=== PATIENT | female | born 1955 | race Caucasian/White ===

== ENCOUNTER 2017-09-08 05:49 | Inpatient (IN) | payer BC ==
[2017-08-24 14:24] VITALS: BMI 40.2
--- NOTE | 2017-09-07 09:09 | HP ---
Satellite [facility] - Chief Complaint Chief Complaint: left knee pain - Past Medical History Allergies/Adverse Reactions: Allergies Allergy/AdvReac Type Severity Reaction Status Date / Time erythromycin base AdvReac Severe Vomiting Verified 08/24/17 14:13 - Current Medications Current Medications: Home Medications Medication Instructions Recorded Fexofenadine HCl 180 mg PO DAILY 03/04/16 Irbesartan/Hydrochlorothiazide 1 tab PO HS 03/04/16 [Avalide 300-12.5 mg Tablet] Metoprolol Succinate [Toprol XL -] 25 mg PO HS 03/04/16 Ferrous Sulfate [Feosol] 325 mg PO DAILY 08/24/17 Naproxen/Esomeprazole Mag [Vimovo 1 each PO ASDIR PRN 08/24/17 Dr 500-20 mg Tablet] Satellite Physical Exam - Physical Examination General Appearance: Well Nourished, Well Developed, Alert & Oriented x3 ENT: Clear Lung: Normal air movement Heart: Regular rate & rhythm Extremities: Other (left knee- + swelling, + ttp ,decr rom, nvi xrays show grade 4 tricompartmental djd) Neurological: Intact, Alert, Oriented Satellite Impression/Plan - Impression/Plan Impression: left knee djd Operative Procedure: left ministerio tkr Date to be Performed: 09/08/17
[2017-09-08] MEDS ORDERED: CELECOXIB 200 MG CAPSULE PO ONE (06:13)
[2017-09-08] MEDS ORDERED: GABAPENTIN 300 MG CAPSULE (FP) PO ONE (06:13)
[2017-09-08] MEDS ORDERED: TRANEXAMIC ACID 1000 MG/10 ML VIAL IVPUSH ONE (06:13)
[2017-09-08] MEDS ORDERED: oxyCODONE HCL 10 MG SUSTAINED ACTING TABLET PO ONE (06:13)
[2017-09-08] MEDS ORDERED: CEFAZOLIN 2 GM/D5W 2 GM/50 ML ML IVPB ONE (06:13)
[2017-09-08] MEDS ORDERED: DEXAMETHASONE SOD PHOSPHATE/PF 10 MG/ML SDV ONE (06:56)
[2017-09-08] MEDS ORDERED: BUPIVACAINE LIPOSOME/PF (EXPAREL) 266 MG/20 ML VIAL ONE (06:56)
[2017-09-08] MEDS ORDERED: ROPIVACAINE HCL 0.5% 30ML VIAL ONE (06:57)
[2017-09-08] MEDS ORDERED: MIDAZOLAM HCL 2 MG/2 ML SINGLE DOSE VIAL ONE ×2 (06:57→09:02)
[2017-09-08] MEDS ORDERED: ONDANSETRON 4 MG/2 ML VIAL ONE (07:04)
[2017-09-08] MEDS ORDERED: PROPOFOL 20 ML ONE ×2 (07:04→09:25)
[2017-09-08] MEDS ORDERED: DEXAMETHASONE SOD PHOSPHATE 4 MG/1 ML VIAL ONE (07:04)
[2017-09-08] MEDS ORDERED: SUCCINYLCHOLINE CHLORIDE 200 MG/10 ML VIAL ONE (07:07)
[2017-09-08] MEDS ORDERED: ceFAZolin SODIUM 1 GM VIAL ONE ×2 (07:24→08:23)
[2017-09-08] MEDS ORDERED: VANCOMYCIN 1,000 MG VIAL (RESTRICTED TO ID ONLY) ONE (07:24)
[2017-09-08] MEDS ORDERED: TRANEXAMIC ACID 1000 MG/10 ML VIAL ONE (08:23)
[2017-09-08] MEDS ORDERED: MAGNESIUM HYDROX 2400MG/30ML ORAL SUSPENSION 30 ML CUP PO PRN (10:10)
[2017-09-08] MEDS ORDERED: ONDANSETRON 4 MG/2 ML VIAL IVPUSH PRN (10:10)
[2017-09-08] MEDS ORDERED: MAG HYDROX/AL HYDROX/SIMETH 30 ML UNIT-DOSE CUP PO PRN (10:10)
[2017-09-08] MEDS ORDERED: ACETAMINOPHEN 1000 MG/100 ML VIAL (NON FORMULARY) IVPB ONE (10:12)
--- NOTE | 2017-09-08 10:13 | OP ---
Operative Note - Note: Operative Date: 09/08/17 (faby) Pre-Operative Diagnosis: left knee djd Operation: left ministerio tkr Post-Operative Diagnosis: Same as Pre-op Surgeon: Gabe Westbrook Manager Forensic: Eros Simeon Anesthesiologist/BOBBIN HANDLER: Ivet Lockett Anesthesia: Spinal, Local Specimens Removed: bone fragments Estimated Blood Loss (mls): 100 Operative Report Dictated: Yes
[2017-09-08] MEDS ORDERED: LACTATED RINGERS SOLUTION 1,000 ML IV SCH (10:15)
[2017-09-08] MEDS: oxyCODONE HCL 5 MG TABLET PO PRN ×2 (15:35→18:13)
[2017-09-08] MEDS: CEFAZOLIN 2 GM/D5W 2 GM/50 ML ML IVPB SCH (15:37)
--- NOTE | 2017-09-08 15:46 | OP ---
DATE OF OPERATION: 09/08/2017 PREOPERATIVE DIAGNOSIS: Degenerative joint disease, left knee. POSTOPERATIVE DIAGNOSIS: Degenerative joint disease, left knee. PROCEDURE: Left total knee replacement with robotic-assisted navigation (MAKOplasty). SURGICAL ATTENDING: Gabe Westbrook MD FAITH DOCTOR: FLORENTINO Ferguson ANESTHESIA: Regional and spinal. CLOSURE: Triathlon knee system, cemented with a 1 femur, a 2 tibia, a 9 polyethylene, a 29 patella; No. 1 Vicryl fascia, 0 and 2-0 subcutaneous, and 3-0 Monocryl subcuticular with skin glue for skin, 4-0 undyed Vicryl for pin sites. ESTIMATED BLOOD LOSS: Approximately 100 mL. COMPLICATIONS: None. CONDITION: To Recovery in stable condition. DESCRIPTION OF OPERATIVE PROCEDURE: Patient was taken to the operating room on September 08, 2017. Spinal and regional anesthesia was administered by the anesthesiologist. IV Kefzol was administered prophylactically prior to the case as was TXA. A well-padded pneumatic tourniquet was placed on the left proximal thigh. Left lower extremity was prepped and draped in the usual sterile fashion. A 12-cm longitudinal midline incision was incised in the knee. Hemostasis achieved with Bovie cautery. Sharp dissection was carried down to the level of the extensor mechanism with sufficient flaps mediolaterally to perform the procedure. A medial parapatellar arthrotomy was then performed and inverting the patella and flexing the knee. Subperiosteal dissection was done on the anterior medial proximal tibia until the knee was able to be brought forward. This was facilitated by taking the menisci and the cruciate ligaments. Checkpoints were malleted on the femur and the tibia. Two pins were drilled in parallel fashion anterior, posterior, proximal to the articular surface in the distal femur, through the anterior cortex, and engaging but not through the posterior cortex. Through 2 small stab incisions, 2 pins were also drilled 1 handbreadth below the tibial tubercle, through the anterior cortex of the tibia, and engaging but not through the posterior cortex. Both these sets of pins were attached to navigation arrays. The knee was then registered with the navigation device with center of rotation of the hip, medial and lateral malleoli, and multiple points on both the femur and the tibia. Confirmation of excellent registration was confirmed by "popping the bubbles." Osteophytes circumferentially were then debrided. The knee was then tensioned in flexion and extension and varus and valgus stress to measure gaps. The virtual position of the components on the navigation device were manipulated to ensure equal gaps in full extension and 90 degrees of flexion in both varus and valgus. The robot was then brought in the field. The distal femur and proximal tibia were then cut to the specifications directed earlier. After the cuts were made, a dog bones were used to confirm equal tension both in varus/valgus in full extension and 90 degrees of flexion. The box was then made using the number 1 sizer for the femur. Trial components were then applied on the femur and on the tibia with a 9-mm insert. That had good stability from full extension to full flexion. The patella was calipered for thickness and then onto the appropriate level. A 29 lollipop was used to drill the lug holes in the patella. Trial component was applied. The knee was taken through a range of motion, found to have excellent tracking of the patella from full extension to full flexion with good stability throughout. The trial components were then removed. The keel was then made in the tibia. The pins and checkpoints were removed. The knee was exsanguinated with an Esmarch bandage. Tourniquet was inflated to 275 mmHg. The knee was thoroughly cleaned. The real components were then cemented in using modern instrumentation cement techniques with antibiotic cement and pressurization. After the cement was hardened, the knee was thoroughly inspected to remove all excess cement. The real number 9 polyethylene was then clipped into place and again found to have excellent range of motion with excellent tracking of the patella and excellent stability throughout. There was a slight avulsion of the medial portion of the patella tendon. In order to fixate that, a corkscrew anchor with FiberWire suture was used, and that was repaired to ensure that it did not propagate. The medial parapatellar arthrotomy was then closed using No. 1 Vicryl interrupted suture. Vancomycin powder was placed in the knee joint prior to closure. The subcutaneous was pulse-antibiotic irrigated and then closed using 0 and 2-0 Vicryl, 3-0 Monocryl subcuticular with skin glue for skin, 4-0 undyed Vicryl for pin sites. A sterile Aquacel dressing, followed by a Sims dressing was applied. Tourniquet was deflated. Total tourniquet time was approximately 25 minutes. No complications. Su [id number]
[2017-09-08] MEDS: ACETAMINOPHEN 325 MG TABLET (FP) PO SCH (18:12)
[2017-09-08] MEDS: metoPROLOL SUCCINATE 25 MG TAB.SR.24H (FP) PO SCH (21:58)
[2017-09-08] MEDS: LOSARTAN POTASSIUM 50 MG TABLET (FP) PO SCH (21:58)
[2017-09-08] MEDS: SENNOSIDES/DOCUSATE COMBO (SENNA PLUS) TABLET (UD) PO SCH (21:58)
[2017-09-08] MEDS: HYDROCHLOROTHIAZIDE 12.5 MG CAPSULE (FP) PO SCH (21:59)
[2017-09-08] MEDS: oxyCODONE HCL 10 MG SUSTAINED ACTING TABLET PO SCH (21:59)
[2017-09-08] MEDS: GABAPENTIN 300 MG CAPSULE (FP) PO SCH (21:59)
[2017-09-08] MEDS ORDERED: PATIENT'S OWN MEDICATION (NON-FORMULARY) (Irbesartan/Hydrochlorothiazide [Avalide 300-12.5 PO SCH (22:00)
[2017-09-09] MEDS: ACETAMINOPHEN 325 MG TABLET (FP) PO SCH ×5 (00:04→23:53)
[2017-09-09] MEDS: oxyCODONE HCL 5 MG TABLET PO PRN ×4 (00:04→21:34)
[2017-09-09] MEDS: CEFAZOLIN 2 GM/D5W 2 GM/50 ML ML IVPB SCH (00:05)
[2017-09-09] MEDS: ASPIRIN 325 MG TABLET PO SCH (08:15)
--- NOTE | 2017-09-09 08:45 | PN ---
Progress Note (short form) - Note Progress Note: Ortho Pt seen and examined s/p right ministerio TKR pod #1 Selected Entries 09/09/17 06:13 Temperature 97.7 F Pulse Rate 73 Respiratory 18 Rate Blood Pressure 118/61 Laboratory Tests 09/09/17 07:52 WBC Pending Hgb Pending Hct Pending Plt Count Pending dressing c/d/i, calf soft, nt rom 0-50, nvi a/p PT dvt ppx pain control d/c home tomorrow if stable
[2017-09-09 09:07] LABS: HEMATOCRIT 37.3 % (32.4-45.2); HEMOGLOBIN 12.7 GM/dl (10.7-15.3); MCH 28.6 pg (25.7-33.7); MCHC 34.2 g/dl (32.0-36.0); MEAN CELL VOLUME 83.9 fl (80-96); MEAN PLT VOLUME 9.6 fl (7.5-11.1); PLATELET COUNT 132 K/MM3 (134-434); RBC 4.45 M/mm3 (3.60-5.2); RDW 14.2 % (11.6-15.6); WHITE BLOOD COUNT 11.9 K/mm3 (4.0-10.8)
[2017-09-09] MEDS: MULTIVITAMINS (DAILY MVI) TABLET (FP) PO SCH (09:18)
[2017-09-09] MEDS: PANTOPRAZOLE 40 MG TABLET (FP) PO SCH (09:18)
[2017-09-09] MEDS: GABAPENTIN 300 MG CAPSULE (FP) PO SCH ×2 (09:18→21:34)
[2017-09-09] MEDS: oxyCODONE HCL 10 MG SUSTAINED ACTING TABLET PO SCH ×2 (09:18→21:32)
[2017-09-09] MEDS: SENNOSIDES/DOCUSATE COMBO (SENNA PLUS) TABLET (UD) PO SCH ×2 (09:18→21:32)
--- NOTE | 2017-09-09 11:16 | PN ---
Progress Note (short form) - Note Progress Note: 62F POD1 s/p L TKR under spinal anesthetic with peripheral nerve blocks for post operative pain. Pt states that pain is well controlled. Reports no anesthetic complications. AVSS. Sensory and motor function intact in bilateral lower extremities. Continue current regimen.
[2017-09-09] MEDS: LOSARTAN POTASSIUM 50 MG TABLET (FP) PO SCH (21:32)
[2017-09-09] MEDS: HYDROCHLOROTHIAZIDE 12.5 MG CAPSULE (FP) PO SCH (21:34)
[2017-09-09] MEDS: metoPROLOL SUCCINATE 25 MG TAB.SR.24H (FP) PO SCH (21:35)
[2017-09-10] MEDS: oxyCODONE HCL 5 MG TABLET PO PRN ×2 (06:29→10:06)
[2017-09-10] MEDS: ACETAMINOPHEN 325 MG TABLET (FP) PO SCH ×2 (06:30→12:14)
[2017-09-10] MEDS: ASPIRIN 325 MG TABLET PO SCH (08:00)
[2017-09-10 08:31] LABS: HEMATOCRIT 33.7 % (32.4-45.2); HEMOGLOBIN 11.7 GM/dl (10.7-15.3); MCH 29.2 pg (25.7-33.7); MCHC 34.8 g/dl (32.0-36.0); MEAN CELL VOLUME 83.9 fl (80-96); MEAN PLT VOLUME 9.4 fl (7.5-11.1); PLATELET COUNT 128 K/MM3 (134-434); RBC 4.02 M/mm3 (3.60-5.2); RDW 14.5 % (11.6-15.6); WHITE BLOOD COUNT 9.1 K/mm3 (4.0-10.8)
[2017-09-10] MEDS: PANTOPRAZOLE 40 MG TABLET (FP) PO SCH (10:03)
[2017-09-10] MEDS: MULTIVITAMINS (DAILY MVI) TABLET (FP) PO SCH (10:03)
[2017-09-10] MEDS: GABAPENTIN 300 MG CAPSULE (FP) PO SCH (10:03)
[2017-09-10] MEDS: SENNOSIDES/DOCUSATE COMBO (SENNA PLUS) TABLET (UD) PO SCH (10:04)
[2017-09-10] MEDS: oxyCODONE HCL 10 MG SUSTAINED ACTING TABLET PO SCH (10:05)
--- NOTE | 2017-09-10 10:19 | DS ---
Physical Examination Vital Signs: Vital Signs Temperature 98.1 F 09/10/17 05:46 Pulse Rate 74 09/10/17 05:46 Respiratory Rate 20 09/10/17 05:46 Blood Pressure 107/51 09/10/17 05:46 O2 Sat by Pulse Oximetry (%) 95 09/10/17 08:00 Labs: CBC, BMP 09/10/17 07:40 Discharge Summary Reason For Visit: OSTEOARTHRITIS Procedures: Principal: s/p right ministerio tkr Hospital Course: admitted for elective right ministerio tkr, uneventful post-op, stable for d/c Condition: Good - Instructions Diet, Activity, Other Instructions: Post-op Instructions-Total Knee Replacement Call the office for a follow-up appointment in 1 week - [phone] Aspirin 325mg daily for 6 weeks. Pain medication was sent into your pharmacy. Apply Graduated Compression Stockings (TEDs) to both lower extremities- remove daily for hygiene ONLY Apply Sequential Compression Device (SCDs) to both Lower extremities remove for PT and hygiene ONLY Apply cold packs to affected area for 15 minutes every 2 hours. Physical Therapist will come to your home for the first 5 days. You will be set up with outpatient PT at your first post-operative visit. Patient may ambulate as tolerated-encourage self care (at least every 2-3 hours while awake) with walker or cane Maintain Aquacel (waterproof) dressing to operative wound (will be removed by surgeon at first office visit) Shower with Aquacel dressing in place-if Aquacel integrity compromised, remove and apply dry sterile dressing and notify Orthopedist. DO NOT SHOWER unless Orthopedists approves without Aquacel dressing CONTACT THE OFFICE FOR ANY CHANGE IN YOUR CONDITION (for example-fever greater than 102 degrees, excessive bleeding from operative site, purulent drainage, severe swelling or pain) GO TO THE EMERGENCY ROOM IF THERE IS A MEDICAL EMERGENCY Knee Precautions: * Keep a rolled towel under affected heel while in bed or chair (to keep knee in extension) * Keep affected leg elevated except during mealtimes * DO NOT PLACE PILLOW UNDER AFFECTED KNEE * If you have any questions, please do not hesitate to call the office - . Referrals: Gabe Westbrook MD [Staff Physician] - Disposition: VNS/HOME HEALTH CARE - Home Medications Comprehensive Discharge Medication List: Ambulatory Orders Fexofenadine HCl 180 mg PO DAILY 03/04/16 Irbesartan/Hydrochlorothiazide [Avalide 300-12.5 mg Tablet] 1 tab PO HS Metoprolol Succinate [Toprol XL -] 25 mg PO HS 03/04/16 Naproxen/Esomeprazole Mag [Vimovo Dr 500-20 mg Tablet] 1 each PO ASDIR PRN 08/24 Aspirin [ASA -] 325 mg PO DAILY@0800 tablet 09/08/17 Oxycodone HCl/Acetaminophen [Percocet 5-325 mg Tablet] 1 - 2 tab PO Q6H #50 tab MDD 8 09/08/17 Naproxen/Esomeprazole Mag [Vimovo Dr 500-20 mg Tablet] 1 each PO BID #60 tab.ir.dr 09/09/17
--- NOTE | 2017-09-10 11:36 | PN ---
Progress Note (short form) - Note Progress Note: AVSS COMFORTABLE AQUACEL SATURATED --->DCED AND NEW CLEAN ONE APPLIED CALF SOFT AND NT NVI + STRAIGHT LEG RAISE ABILITY AROM 0-90 IMP: DOING WELL PLANl: DC TO HOME, ROSEANNE APPLIED TO KNEE FOR COMPRESIION, HOME PT AND F/U X ONE WEEK
--- NOTE | 2017-09-10 12:02 | PATH ---
Surgical Pathology Report Patient Name: JOE PRUETT Med. Rec. #: [id number] /Age/Gender: 1955 (Age: 62) / F Account: [id number] Location: [facility] MED-SURG Taken: 09/08/2017 Received: 09/08/2017 Reported: 09/10/2017 Physicians: Gabe Westbrook M.D. Specimen(s) Received BONE LEFT KNEE Clinical History Left knee osteoarthritis Final Diagnosis BONE, KNEE, LEFT, TOTAL KNEE REPLACEMENT MAKOPLASTY: BONE WITH DEGENERATIVE CHANGES AND FIBROADIPOSE TISSUE. Electronically Signed Shobha Wright M.D. Gross Description Received in formalin labeled "bone left knee," is a 10.5 x 9.5 x 2.0 cm aggregate of multiple irregular portions of bone and soft tissue. The tibial plateau measures 6.5 x 4.9 x 1.4 cm. There is a 2 cm in greatest dimension area of eburnation identified. The remaining articular surfaces are desouza-yellow and focally granular. The underlying trabecular bone is yellow and hard. Final Inspector Movement Assembly sections are submitted in one cassette, following decalcification. 09/09/201709/09/2017
[2017-09-10 15:12] VITALS: BP 112/48; PULSE 78; TEMP 98.3
== END 2017-09-10 16:45 | disposition home health service (06) | DRG 470 ==
LOC: FM/S 05:49
PROVIDERS: ADMIT Orthopaedic Surgery; ATTEND Orthopaedic Surgery
PROC: 8E0Y0CZ Robotic Assisted Procedure of Lower Extremity, Open Approach (ICD-10-PCS; 2017-09-08)
PROC: 0SRD0J9 Replacement of Left Knee Joint with Synthetic Substitute, Cemented, Open Approach (ICD-10-PCS; principal; 2017-09-08 08:36)
DX: M17.12 Unilateral primary osteoarthritis, left knee (principal)
CPT/HCPCS: 36415; 73560-TC-LT-FY; 85027; 88304-TC; 88311-TC; 94760; 97116-GP; 97162-GP